=== PATIENT | female | born 1995 | race Caucasian/White ===

== ENCOUNTER 2017-09-25 12:05 | Emergency (ER) | payer OTHER ==
[2017-09-25 12:17] VITALS: BP 129/57
--- NOTE | 2017-09-25 15:31 | UC ---
Jeevan Morin Jason[facility] on 09/25/17 at 1338 . Throat Pain/Nasal Catrachito HPI - HPI Summary HPI Summary: In Room: This patient is a 22 year old F [place] [facility] [place] father with a chief complaint of sore throat that started 1 day ago. The last time she felt well was 3 days ago. The patient rates the pain 3/10 in severity. Symptoms aggravated by nothing. Symptoms alleviated by nothing. Patient reports swallowing pain, right sided neck pain and ear discomfort. Patient denies cough, back pain, CP, stomach sx, urine sx and bowel sx.. The patient says that she does have tonsils and has never been to the hospital overnight for a condition. note: VSS, AFEBRILE, PULSE OX: 96. 3/10 throat discomfort. Nurses note: c/o sore throat, achiness, swollen glands since yesterday. Denies coughing or fever - History of Current Complaint Chief Complaint: UCRespiratory Stated Complaint: SORE THROAT, EAR PAIN Time Seen by Provider: 09/25/17 13:32 Hx Obtained From: Patient Hx Last Menstrual Period: pt states on B/C pills and does not get a menses Onset/Duration: Gradual Onset Pain Intensity: 3 Pain Scale Used: 0-10 Numeric Cough: Nonproductive Associated Signs & Symptoms: Positive: Other - swallowing pain, right sided neck pain and ear discomfort. Patient denies cough, back pain, CP, stomach sx, urine sx and bowel sx... Negative: Fever - Allergies/Home Medications Allergies/Adverse Reactions: Allergies Allergy/AdvReac Type Severity Reaction Status Date / Time No Known Allergies Allergy Verified 09/25/17 12:18 Home Medications: Home Medications Ibuprofen [Ibuprofen 200] 400 mg PO PRN 09/25/17 [History] PMH/Surg Hx/FS Hx/Imm Hx Previously Healthy: Yes Cardiovascular History: Other Other Cardiovascular History: negative asthma Respiratory History: Other Other Respiratory History: negative asthma - Surgical History Surgical History: None - Family History Known Family History: Positive: Hypertension Negative: Blood Disorder - Social History Alcohol Use: Occasionally Substance Use Type: None Smoking Status (MU): Never Smoked Tobacco Review of Systems All Other Systems Reviewed And Are Negative: Yes - Comments Additional Review of Systems Comments: A 12 point review of systems was completed and significantly positive for: swallowing pain, right sided neck pain and ear discomfort. Patient denies cough , back pain, CP, stomach sx, urine sx and bowel sx.~The remainder of the review was negative except as stated above in the HPI. Physical Exam Triage Information Reviewed: Yes Vital Signs: Initial Vital Signs Temp 98.2 F 09/25/17 12:12 Pulse 110 09/25/17 12:12 Resp 16 09/25/17 12:12 BP 129/57 09/25/17 12:12 Pulse Ox 96 09/25/17 12:12 - Additional Comments General: The patient is well-nourished in no acute distress and in no acute pain. Skin: The skin is warm and dry and skin color reflects adequate perfusion. HEENT: The head is normocephalic and atraumatic. The pupils are equal and reactive. The conjunctivae are clear and without drainage. Nares are patent and without drainage. Mouth reveals moist mucous membranes and the throat is without exudate. The external ears are intact. The ear canals are patent and without drainage. The tympanic membranes are intact. Neck is supple with full range of motion and non-tender. There are no carotid bruits. There is no neck vein distension. Mild right anterior adenopathy. Erythematous throat, and large tonsils. Respiratory: Chest is non-tender. Lungs are clear to auscultation and breath sounds are symmetrical and equal. Cardiovascular: Heart is regular rate and rhythm. There is no murmur or rub auscultated. There is no peripheral edema and pulses are symmetrical and equal. Abdomen: The abdomen is soft and non-tender. There are normal bowel sounds heard in all four quadrants and there is no organomegaly palpated. Musculoskeletal: There is no back pain noted. Extremities are non-tender with full range of motion. There is good capillary refill. There is no peripheral edema or calf tenderness elicited. Neurological: Patient is alert and oriented to person, place and time. The patient has symmetrical motor strength in all four extremities. Cranial nerves are grossly intact. Deep tendon reflexes are symmetrical and equal in all four extremities. Psychiatric: The patient has an appropriate affect and does not exhibit any anxiety or depression Throat Pain/Nasal Course/Dx - Course Course Of Treatment: The patient is a healthy 22 year old with a sore throat. Rapid strep test was negative. Patient is Urgent/Emergent. BP elevated due to current condition w/o HTN in PMH. I discussed symptomatic treatment with the patient and her father. Patient is agreeable with the plan. Dx of viral pharyngitis. - Differential Dx/Diagnosis Differential Diagnosis/HQI/PQRI: Pharyngitis - viral, URI, Other - Strep Provider Diagnoses: viral pharyngitis Discharge - Discharge Plan Condition: Stable Disposition: HOME Patient Education Materials: Pharyngitis (ED) Referrals: Ashley Hussein MD [Primary Care Provider] - Additional Instructions: Thank you for helping us improve patient care by filling out the My Point Survey. WE DISCUSSED: 1. You do not have strep. You have a virus of your throat and tonsils. 2. See instructions below for comfort. USEFUL WAYS TO FEEL BETTER WITHOUT MEDICATIONS: STAND UNDER SHOWER STREAM TO LOOSEN SECRETIONS. USE A VAPORIZOR. STAY AWAY FROM ANY SMOKE OR IRRITANTS. USE SALINE NASAL SPRAY TO KEEP FLOW OF MUCOUS FROM NOSTRILS AND SINUSES. CONSIDER USING NETI POT TO HELP WITH ALLERGIES AND CONGESTION IN THE NOSE. USE THIS THREE TIMES A WEEK. YOU CAN GET THIS AT [employer] [place] OR [employer]. DRINK LOTS OF WARM FLUIDS USEFUL HOME REMEDIES: WARM WATER GARGLES, WITH TSP OF SALT PER 8 OUNCES OF WATER, GARGLE FOR A FEW SECONDS AND SPIT OUT; GARGLE AND SPIT OUT; EVERY THREE HOURS. AND/OR: WARM WATER OR TEA, HONEY AND LEMON; 2-3 CUPS A DAY. FOR SORE THROAT: KEEP THROAT MOIST WITH LOZENGES; TEA AND HONEY. USE WARM WATER GARGLES 3-4 TIMES A DAY. FOLLOW UP: RE-CHECK IN 1O DAYS, NEEDED, IF YOU ARE NOT IMPROVING. RETURN HERE OR SEE YOUR PHYSICIAN. RE-CHECK SOONER IF INCREASED PAIN OR TEMPERATURE. 3. For pain: Ibuprofen 400mg (2 pills) and acetaminophen 500 mg taken at the same time, up to four times a day would be good for both pain and calming down the inflammation. This may irritate your stomach. Take an antacid if it does. If you need to do this for more than a week because of pain, check with your doctor. PLEASE SEEK CARE AT THE EMERGENCY DEPARTMENT IF SYMPTOMS WORSEN OR IF NEW SYMPTOMS DEVELOP. FOLLOW UP WITH YOUR PRIMARY CARE PHYSICIAN. The documentation as recorded by the scribe, Jeevan,Armando accurately reflects the service I personally performed and the decisions made by me, Quang Wilkins MD.
== END 2017-09-25 13:50 | disposition home or self-care (01) ==
LOC: UCEAST 12:05
DX: J02.9 Acute pharyngitis, unspecified (principal)
CPT/HCPCS: 87651; 99211; G0463

== ENCOUNTER 2023-04-09 18:00 | Inpatient (IN) ==
[2023-04-09] MEDS ORDERED: Lactated Ringers 1000 ml BAG 1,000 ML IV ONE (18:37)
[2023-04-09] MEDS ORDERED: Promethazine INJ(RESTRICTED) 25 MG/ML 1 ml VIAL IV PRN (18:37)
[2023-04-09] MEDS ORDERED: Nalbuphine 10 MG/ML 1 ML VIAL IV PRN (18:37)
[2023-04-09] MEDS ORDERED: Buffered Lidocaine 1% SYRIN 1 ml INTRADERM ONE (18:37)
[2023-04-09] MEDS ORDERED: Lactated Ringers 1000 ml BAG 1,000 ML IV SCH (19:00)
[2023-04-09] MEDS ORDERED: Dinoprostone 10 MG VAG.SUPP VAGINAL ONE (19:04)
[2023-04-09 19:17] LABS: Urine Benzodiazepine Screen None Detected (None Detect); Urine Opiates Screen None Detected (None Detect)
[2023-04-09] MEDS ORDERED: Morphine 10 MG/ML VIAL (1 ml) IM ONE (20:36)
[2023-04-10] MEDS ORDERED: Oxytocin in LR 20,000 MILLI.UNIT/1,000 ML BAG IV SCH (10:45)
[2023-04-10] MEDS ORDERED: Buffered Lidocaine 1% SYRIN 1 ml INTRADERM ONE (11:05)
[2023-04-10 11:47] LABS: ABS Eosinophils 0.2 10^3/uL (0.0-0.5); ABS Lymphocytes 2.5 10^3/uL (1.0-4.8); ABS Monocytes 1.1 10^3/uL (0.0-0.9); ABS Neutrophils 8.3 10^3/uL (1.5-7.6); Eosinophil % 1.7 %; Hematocrit 36.6 % (35-45); Hemoglobin 12.2 g/dL (11.5-14.3); Lymphocyte % 20.4 %; Mean Corpuscular Hgb Conc 33.4 g/dL (31-36); Mean Corpuscular Volume 83.9 fL (80-97); Mean Platelet Volume 9.3 fL (7.5-11.2); Platelet Count 278 10^3/uL (150-450); Red Blood Count 4.36 10^6/uL (3.63-4.92); Red Cell Distribution Width 14.1 % (12-17); White Blood Count 12.1 10^3/uL (3.8-11.8)
[2023-04-10] MEDS ORDERED: Lidocaine 1.5% EPI 1:200,000 30 ML SDV ONE (18:32)
[2023-04-10] MEDS ORDERED: OBEPIDURAL (200 ML) 200 ML EPIDURAL ONE (18:32)
[2023-04-10] MEDS ORDERED: Sodium Citrate/Citric Acid LIQ 15 ML UDC PO PRN (19:26)
[2023-04-10] MEDS ORDERED: Phenylephrine 40 mcg/mL 10mL (400mcg) SYRINGE IV PUSH PRN ×2 (19:26)
[2023-04-10] MEDS ORDERED: Lactated Ringers 1000 ml BAG 1,000 ML IV ONE (19:26)
[2023-04-10] MEDS ORDERED: OBEPIDURAL (200 ML) 200 ML EPIDURAL SCH (20:00)
[2023-04-10] MEDS ORDERED: Lactated Ringers 1000 ml BAG 1,000 ML IV SCH (20:00)
[2023-04-10] MEDS ORDERED: fentaNYL 100 mcg/2 ml 50 MCG/ML VIAL ONE (22:18)
[2023-04-11] MEDS ORDERED: fentaNYL 100 mcg/2 ml 50 MCG/ML VIAL ONE (02:39)
[2023-04-11] MEDS ORDERED: Acetaminophen IV 1 GM/100ML 1,000 MG/100 ML BAG IV ONE (05:00)
[2023-04-11] MEDS ORDERED: Lidocaine 1.5% EPI 1:200,000 30 ML SDV ONE (06:53)
[2023-04-11] MEDS ORDERED: ceFOXitin 2 GM IVPREMIX 2 GM/50 ML BAG IVPB ONE (08:08)
[2023-04-11] MEDS ORDERED: Dexamethasone IV 4 MG/ML VIAL 1 ml VIAL ONE (08:10)
[2023-04-11] MEDS ORDERED: Oxytocin 10 UNITS/ML 1 ML VIAL ONE (08:10)
[2023-04-11] MEDS ORDERED: Ondansetron 4 mg VIAL 2 MG/ML 2 ml VIAL ONE (08:10)
[2023-04-11] MEDS ORDERED: Morphine PF AMP (0.5MG/ML) 5 MG/10 ML AMP ONE (08:11)
[2023-04-11] MEDS ORDERED: Acetaminophen IV 1 GM/100ML 1,000 MG/100 ML BAG IV PRN (09:39)
[2023-04-11] MEDS ORDERED: Naloxone 0.4 mg VIAL 0.4 mg/ml 1 ml VIAL IV PUSH PRN (09:39)
[2023-04-11] MEDS ORDERED: Ondansetron 4 mg VIAL 2 MG/ML 2 ml VIAL IV PRN (09:39)
[2023-04-11] MEDS ORDERED: Metoclopramide 5 MG/ML VIAL (10 mg) IV PRN (09:39)
[2023-04-11] MEDS ORDERED: Dibucaine 1% OINT 28.35 GM TUBE PR PRN (10:03)
[2023-04-11] MEDS ORDERED: Glycerin ADULT 2.4 gm SUPP PR PRN (10:03)
[2023-04-11] MEDS ORDERED: Witch Hazel PAD JAR TOPICAL PRN (10:03)
[2023-04-11] MEDS ORDERED: Oxytocin in LR 20,000 MILLI.UNIT/1,000 ML BAG IV SCH (10:15)
[2023-04-11] MEDS ORDERED: Lactated Ringers 1000 ml BAG 1,000 ML IV SCH (11:00)
[2023-04-12 07:29] LABS: ABS Eosinophils 0.1 10^3/uL (0.0-0.5); ABS Lymphocytes 2.5 10^3/uL (1.0-4.8); ABS Monocytes 1.3 10^3/uL (0.0-0.9); ABS Neutrophils 13.5 10^3/uL (1.5-7.6); Eosinophil % 0.7 %; Hematocrit 27.8 % (35-45); Hemoglobin 9.4 g/dL (11.5-14.3); Lymphocyte % 14.4 %; Mean Corpuscular Hemoglobin 28.4 pg (27-33); Mean Corpuscular Hgb Conc 33.7 g/dL (31-36); Mean Corpuscular Volume 84.2 fL (80-97); Mean Platelet Volume 8.9 fL (7.5-11.2); Platelet Count 202 10^3/uL (150-450); Red Cell Distribution Width 14.9 % (12-17); White Blood Count 17.5 10^3/uL (3.8-11.8)
[2023-04-12] MEDS: Vitamins A & D OINT 42.5 GM TUBE TOPICAL SCH (13:21)
[2023-04-13] MEDS: Vitamins A & D OINT 42.5 GM TUBE TOPICAL SCH ×4 (05:20→20:10)
[2023-04-14 08:20] VITALS: BP 115/80
== END 2023-04-14 14:01 | disposition home or self-care (01) | DRG 540 ==
LOC: MCHOBOUT 18:00 → MCHOB 18:45
PROVIDERS: ADMIT Registered Nurse; ATTEND Registered Nurse